=== PATIENT | female | born 1955 | race African-American/Black ===

== ENCOUNTER 2024-06-20 21:54 | Emergency (ER) | payer OTHER ==
[~2024-06-20] VITALS: Ht 172.7 cm; Wt 69.0 kg
[2024-06-20 22:07] VITALS: TEMP 98.4; O2SAT 100
[2024-06-21] MEDS ORDERED: METH-653 MT (00:35)
[2024-06-21] MEDS ORDERED: IBUP-2029 MT (00:35)
[2024-06-21 00:47] VITALS: BP 124/74; PULSE 77; RESP 17; O2SAT 100
== END 2024-06-21 00:49 | disposition home or self-care (01) ==
LOC: ER 21:54
DX: S09.90XA Unspecified injury of head, initial encounter (principal); F32.A Depression, unspecified; I10 Essential (primary) hypertension; Z88.5 Allergy status to narcotic agent; Z79.899 Other long term (current) drug therapy; V89.2XXA Person injured in unspecified motor-vehicle accident, traffic, initial encounter; Y93.89 Activity, other specified; Y92.89 Other specified places as the place of occurrence of the external cause; Y99.8 Other external cause status
CPT/HCPCS: 99284